=== PATIENT | female | born 1970 | race African-American/Black ===

== ENCOUNTER 2020-11-17 17:07 | Inpatient (IN) | payer OTHER ==
[2020-11-18] MEDS ORDERED: MENTHOL/PHENOL 1 EACH UD MM PRN (00:34)
[2020-11-18] MEDS ORDERED: MAGNESIUM CITRATE 300 ML BOTTLE PO PRN (00:34)
[2020-11-18] MEDS ORDERED: MAG HYDROX/AL HYDROX/SIMETH 30 ML UNIT-DOSE CUP PO PRN (00:34)
[2020-11-18] MEDS ORDERED: ACETAMINOPHEN 325 MG TABLET (FP) PO PRN (00:34)
[2020-11-18] MEDS ORDERED: MAGNESIUM HYDROX 2400MG/30ML ORAL SUSPENSION 30 ML CUP PO PRN (00:34)
[2020-11-18] MEDS ORDERED: NICOTINE 10 MG CARTRIDGE (INHALER) IH PRN (00:34)
[2020-11-18] MEDS ORDERED: ONDANSETRON *ODT* 4 MG TABLET SL PRN (00:34)
[2020-11-18] MEDS ORDERED: IBUPROFEN 400 MG TABLET (FP) PO PRN (00:34)
[2020-11-18] MEDS ORDERED: BISMUTH SUBSALICYLATE 524 MG/30 ML PO PRN (00:34)
[2020-11-18 01:52] VITALS: BMI 34.2
[2020-11-18] MEDS ORDERED: hydrOXYzine PAMOATE 25 MG CAPSULE (FP) PO ONE (07:00)
[2020-11-18] MEDS: hydrOXYzine PAMOATE 25 MG CAPSULE (FP) PO SCH ×5 (07:00→22:36)
[2020-11-18] MEDS ORDERED: LORazepam 1 MG TABLET PO PRN (09:58)
[2020-11-18] MEDS ORDERED: ALBUTEROL SO4 HFA INHALER IH PRN (09:59)
[2020-11-18] MEDS: PRENATAL VITAMINS W/ FOLIC ACID TABLET (FP) PO SCH (10:11)
[2020-11-18] MEDS ORDERED: LORazepam 2 MG TABLET PO PRN (11:00)
[2020-11-18] MEDS: BUDESONIDE/FORMETEROL FUMARATE 80/4.5 mcg INHALER IH SCH (12:06)
[2020-11-18] MEDS ORDERED: ATORVASTATIN CA 40 MG TABLET (FP) ONE (21:06)
[2020-11-18] MEDS: THIAMINE HCL 100 MG TABLET (FP) PO SCH (22:37)
[2020-11-18] MEDS: MELATONIN 5 MG TABLETS PO SCH (22:37)
[2020-11-18] MEDS: ATORVASTATIN CA 80 MG TABLET (FP) PO SCH (22:37)
[2020-11-18] MEDS: MYCOPHENOLATE MOFETIL 500 MG TABLET PO SCH (23:54)
[2020-11-19] MEDS: hydrOXYzine PAMOATE 25 MG CAPSULE (FP) PO SCH ×5 (06:30→23:10)
[2020-11-19] MEDS: LORazepam 2 MG TABLET PO SCH ×4 (06:31→23:10)
[2020-11-19] MEDS: ACETAMINOPHEN 325 MG TABLET (FP) PO PRN ×2 (06:32→13:12)
[2020-11-19] MEDS: MYCOPHENOLATE MOFETIL 500 MG TABLET PO SCH ×2 (10:50→23:09)
[2020-11-19] MEDS: BUDESONIDE/FORMETEROL FUMARATE 80/4.5 mcg INHALER IH SCH (10:51)
[2020-11-19] MEDS: PRENATAL VITAMINS W/ FOLIC ACID TABLET (FP) PO SCH (10:51)
[2020-11-19] MEDS: ASPIRIN COATED 81 MG TABLET.EC PO SCH (10:51)
[2020-11-19] MEDS: METHOCARBAMOL 500 MG TABLET PO PRN ×2 (10:52→18:26)
[2020-11-19] MEDS: PANTOPRAZOLE 40 MG TABLET PO SCH (11:19)
[2020-11-19 12:02] LABS: HEMATOCRIT 40.1 % (32.4-45.2); HEMOGLOBIN 12.7 GM/dL (10.7-15.3); MCH 22.6 pg (25.7-33.7); MCHC 31.7 g/dl (32.0-36.0); MEAN CELL VOLUME 71.4 fl (80-96); MEAN PLT VOLUME 9.1 fl (7.5-11.1); PLATELET COUNT 283 10^3/uL (134-434); RBC 5.62 M/mm3 (3.60-5.2); RDW 16.6 % (11.6-15.6); WHITE BLOOD COUNT 4.4 K/mm3 (4.0-10.0)
[2020-11-19 12:24] LABS: CALCIUM 8.6 mg/dL (8.5-10.1)
[2020-11-19 12:25] LABS: ALBUMIN 3.1 g/dl (3.4-5.0); BLOOD UREA NITROGEN 12.4 mg/dL (7-18)
[2020-11-19 12:28] LABS: CREATININE 0.9 mg/dL (0.55-1.3)
[2020-11-19 12:30] LABS: BILIRUBIN,TOTAL 0.5 mg/dL (0.2-1); TOT PROT 6.4 g/dl (6.4-8.2)
[2020-11-19] MEDS: ENTECAVIR 0.5 MG TABLET PO SCH (13:11)
[2020-11-19] MEDS: ATORVASTATIN CA 80 MG TABLET (FP) PO SCH (23:09)
[2020-11-19] MEDS: THIAMINE HCL 100 MG TABLET (FP) PO SCH (23:10)
[2020-11-19] MEDS: MELATONIN 5 MG TABLETS PO SCH (23:10)
[2020-11-20] MEDS ORDERED: LORazepam 1 MG TABLET PO SCH (05:00)
[2020-11-20] MEDS: LORazepam 2 MG TABLET PO SCH (06:49)
[2020-11-20] MEDS: hydrOXYzine PAMOATE 25 MG CAPSULE (FP) PO SCH ×2 (06:50→10:12)
[2020-11-20] MEDS: MYCOPHENOLATE MOFETIL 500 MG TABLET PO SCH ×2 (10:15→22:19)
[2020-11-20] MEDS: METHOCARBAMOL 500 MG TABLET PO PRN ×2 (10:15→18:16)
[2020-11-20] MEDS: BUDESONIDE/FORMETEROL FUMARATE 80/4.5 mcg INHALER IH SCH (10:15)
[2020-11-20] MEDS: ENTECAVIR 0.5 MG TABLET PO SCH (10:16)
[2020-11-20] MEDS: ACETAMINOPHEN 325 MG TABLET (FP) PO PRN ×2 (10:16→18:18)
[2020-11-20] MEDS: PRENATAL VITAMINS W/ FOLIC ACID TABLET (FP) PO SCH (10:16)
[2020-11-20] MEDS: PANTOPRAZOLE 40 MG TABLET PO SCH (10:16)
[2020-11-20] MEDS: ASPIRIN COATED 81 MG TABLET.EC PO SCH (10:16)
[2020-11-20] MEDS: LORazepam 1 MG TABLET PO SCH ×3 (10:50→22:19)
[2020-11-20] MEDS ORDERED: LORazepam 0.5 MG TABLET PO PRN (11:22)
[2020-11-20] MEDS: METHYL SALICYLATE/MENTHOL OINT 30 GM TUBE TP SCH ×2 (15:13→22:19)
[2020-11-20] MEDS: hydrOXYzine PAMOATE 25 MG CAPSULE (FP) PO PRN ×2 (18:16→22:20)
[2020-11-20] MEDS: ATORVASTATIN CA 80 MG TABLET (FP) PO SCH (22:18)
[2020-11-20] MEDS: THIAMINE HCL 100 MG TABLET (FP) PO SCH (22:18)
[2020-11-20] MEDS: MELATONIN 5 MG TABLETS PO SCH (22:19)
[2020-11-21] MEDS ORDERED: LORazepam 0.5 MG TABLET PO PRN
[2020-11-21] MEDS ORDERED: LORazepam 0.5 MG TABLET PO SCH ×2 (05:00→22:00)
[2020-11-21] MEDS: LORazepam 0.5 MG TABLET PO SCH ×2 (06:58→10:05)
[2020-11-21 08:44] VITALS: BP 142/96; PULSE 96; TEMP 96.1
[2020-11-21] MEDS: METHYL SALICYLATE/MENTHOL OINT 30 GM TUBE TP SCH (09:53)
[2020-11-21] MEDS: ENTECAVIR 0.5 MG TABLET PO SCH (09:53)
[2020-11-21] MEDS: PRENATAL VITAMINS W/ FOLIC ACID TABLET (FP) PO SCH (09:54)
[2020-11-21] MEDS: MYCOPHENOLATE MOFETIL 500 MG TABLET PO SCH (09:54)
[2020-11-21] MEDS: ASPIRIN COATED 81 MG TABLET.EC PO SCH (09:54)
[2020-11-21] MEDS: BUDESONIDE/FORMETEROL FUMARATE 80/4.5 mcg INHALER IH SCH (09:55)
[2020-11-21] MEDS: PANTOPRAZOLE 40 MG TABLET PO SCH (09:55)
[2020-11-22] MEDS ORDERED: LORazepam 0.5 MG TABLET PO ONE ×2 (05:00)
[2020-11-23] MEDS ORDERED: LORazepam 0.5 MG TABLET PO PRN
== END 2020-11-21 11:04 | disposition home or self-care (01) | DRG 774 ==
LOC: YASAS 17:07 → Y3N 11-18 11:37
PROVIDERS: ADMIT Allergy & Immunology; ATTEND Allergy & Immunology
PROC: HZ2ZZZZ Detoxification Services for Substance Abuse Treatment (ICD-10-PCS; principal; 2020-11-18)
DX: F10.230 Alcohol dependence with withdrawal, uncomplicated (principal); F14.20 Cocaine dependence, uncomplicated; F12.20 Cannabis dependence, uncomplicated; J44.9 Chronic obstructive pulmonary disease, unspecified; M54.5 Low back pain; G89.29 Other chronic pain; M13.89 Other specified arthritis, multiple sites; M54.30 Sciatica, unspecified side; E66.9 Obesity, unspecified; Z68.31 Body mass index [BMI] 31.0-31.9, adult; Z87.891 Personal history of nicotine dependence
CPT/HCPCS: 36415; 80053; 85027; 86780; C9803; J7517; U0003; U0005